=== PATIENT | male | born 2005 | race Two or more races ===

== ENCOUNTER 2024-04-16 16:41 | Emergency (ER) | payer OTHER, SELFPAY ==
[2024-04-16 16:56] VITALS: BP 140/75; PULSE 79; TEMP 37.1; O2SAT 99; BMI 23.0
--- NOTE | 2024-04-16 17:04 | ECG_ITS ---
[facility] Test Date: 2024-04-16 Pat Name: SOLE REES Department: Room: - Gender: Male Clinical Trials Specialist: : 2005 Requested By: AMBER SANTOYO Order Number: [id number] Reading MD: BERT BISWAS Measurements Intervals [place] Rate: 72 P: 65 TX: 140 QRS: 81 QRSD: 96 T: 65 QT: 354 QTc: 378 Interpretive Statements 1100 Sinus rhythm 1102 Sinus arrhythmia 2420 RSR (QR) in lead V1/V2, consistent with right ventricular conduction delay 9130 borderline ECG No previous ECG available for comparison Electronically Signed On 04-17-2024 5:30:11 EDT by BERT BISWAS
[2024-04-16 17:26] LABS: Basophils Absolute Auto 0.1 10^3/uL (0.0-0.1); Basophils Percent Auto 0.9 % (0.2-2.0); Eosinophils Absolute Auto 0.5 10^3/uL (0.0-0.7); Eosinophils Percent Auto 7.8 % (0.9-7.0); Hematocrit 41.1 % (42.0-54.0); Immature Granulocytes Abs Auto 0.01 10^3/uL (0.00-0.03); Immature Granulocytes Pct Auto 0.1 % (0.0-0.5); Lymphocytes Absolute Auto 2.6 10^3/uL (1.2-3.8); Mean Corpuscular HGB Conc 34.1 g/dL (29.9-35.2); Mean Corpuscular Hemoglobin 29.9 pg (25.9-34.0); Mean Corpuscular Volume 87.6 fL (80.0-94.0); Mean Platelet Volume 9.8 fL (9.5-13.5); Monocytes Absolute Auto 0.5 10^3/uL (0.3-0.8); Monocytes Percent Auto 6.5 % (1.7-12.0); Neutrophils Absolute Auto 3.3 10^3/uL (1.4-6.5); Neutrophils Percent Auto 47.7 % (43.0-75.0); Platelet Count 225 10^3/uL (150-450); Red Blood Count 4.69 10^6/uL (4.70-6.10); Red Cell Distribution Width 12.2 % (11.0-15.0); White Blood Count 6.9 10^3/uL (4.0-11.0)
[2024-04-16 17:41] LABS: INR 1.07; Prothrombin Time 11.3 sec (9.0-11.6)
[2024-04-16 17:42] LABS: Alanine Aminotransferase 33 U/L (16-63); Albumin Globulin Ratio 1.5; Albumin Level 4.5 g/dL (3.4-5.0); Alkaline Phosphatase 68 U/L (46-116); Anion Gap 12.6; Aspartate Amino Transferase 22 U/L (15-37); BUN Creatinine Ratio 11.6; Bilirubin Total 0.4 mg/dL (0.2-1.0); Calcium 9.6 mg/dL (8.5-10.1); Carbon Dioxide 31.3 mmol/L (21.0-32.0); Chloride 103 mmol/L (98-107); Estimated GFR (African America >60 (>=60); Estimated GFR (Non-African Ame >60 (>=60); Glucose 89 mg/dL (74-106); Potassium 3.9 mmol/L (3.5-5.1); Sodium 143 mmol/L (136-145); Total Protein 7.5 g/dL (6.4-8.2)
[2024-04-16 17:43] LABS: D Dimer <0.19 mg/L FEU (<=0.59)
--- NOTE | 2024-04-16 17:44 | XR_ITS ---
[place] [address] Patient Name: SOLE REES MRN: [id number] date: 2005 Sex: M Assigned Patient Location: ER Current Patient Location: Accession/Order Number: [id number] Exam Date: 04/16/2024 18:00 Report Date: 04/16/2024 18:58 At the request of: NICKOLAS ALSTON Procedure: XR chest 2V EXAMINATION: XR chest 2V 04/16/2024 3:57 PM PDT, [id number]. HISTORY: Chest pain TECHNIQUE: 2 views of the chest were acquired. COMPARISONS: None. FINDINGS: Lines/tubes/other: None. Heart and mediastinum: Within normal limits. Bones: No acute osseous abnormality. Lungs: Clear. Pleura: No pleural effusion or pneumothorax. Other: No pneumoperitoneum. XR/XR chest 2V IMPRESSION: Normal radiographs of the chest. Electronically authenticated by: NALINI SALDAÑA Date: 04/16/2024 18:58
--- NOTE | 2024-04-16 17:58 | ED_ITS ---
HPI HPI - General Adult General Chief complaint: Chest Pain Stated complaint: CHEST PAIN AND BACK PAIN Time Seen by Provider: 04/16/24 16:48 Source: patient Mode of arrival: walk-in History of Present Illness HPI narrative: Patient is a 19-year-old male who presents to the emergency department For the evaluation of left anterior chest pain radiating into the left scapula that has been present throughout the day today. He denies any mechanism of injury or trauma. Pain does not radiate to the arm. No peripheral paresthesias. He denies any recent fevers, cough or congestion. He states the pain is worse with deep breathing and movement of the chest wall. No medications taken prior to arrival. Related Data Home Medications ?Medication ?Instructions ?Recorded ?Confirmed buspirone 10 mg tablet 10 mg PO DAILY 04/16/24 04/16/24 Previous Rx's ?Medication ?Instructions ?Recorded methylprednisolone 4 mg tablets in See Rx Instructions .Route 04/16/24 a dose pack (Medrol (Shayne)) .COMPLEX #21 ea naproxen sodium 550 mg tablet 550 mg PO BID PRN pain #10 tabs 04/16/24 Allergies Allergy/AdvReac Type Severity Reaction Status Date / Time Latex, Natural Rubber Allergy Mild Rash Verified 04/16/24 16:55 Opioid HPI Opioid Management Most Recent Opioid Data: No Data to Display Review of Systems ROS Constitutional Denies: fever or chills Ears, nose, mouth, and throat Denies: throat pain or nasal congestion Cardiovascular Reports: chest pain Respiratory Denies: shortness of breath or cough Gastrointestinal Denies: nausea or vomiting Musculoskeletal Denies: back pain or neck pain Integumentary/Breast Denies: rash Neurological Denies: headache Hematologic/Lymphatic Denies: easy bruising or easy bleeding Exam Narrative Exam Narrative: Gen.: Awake, alert, in no distress Head: Normocephalic, atraumatic ENT: Moist mucous membranes Respiratory: No respiratory distress, lungs clear bilaterally; No rashes or color change noted to the chest wall or scapula Cardio: Regular rate and rhythm Extremities: Moves extremities equally, no pedal edema Psych: Normal mood and affect Neuro: No focal neuro deficit Skin: Warm, dry, intact Constitutional Vital Signs, click to edit/add: Last Vital Signs Temp 98.7 F 04/16/24 16:56 Pulse 79 04/16/24 16:56 Resp 16 04/16/24 16:56 BP 140/75 04/16/24 16:56 Pulse Ox 99 04/16/24 16:56 O2 Del Method Room Air 04/16/24 16:56 Course Vital Signs Vital signs: Vital Signs Temperature 98.7 F 04/16/24 16:56 Pulse Rate 79 04/16/24 16:56 Respiratory Rate 16 04/16/24 16:56 Blood Pressure 140/75 04/16/24 16:56 Pulse Oximetry 99 04/16/24 16:56 Oxygen Delivery Method Room Air 04/16/24 16:56 Temperature 98.7 F 04/16/24 16:56 Pulse Rate 79 04/16/24 16:56 Respiratory Rate 16 04/16/24 16:56 Blood Pressure 140/75 04/16/24 16:56 Pulse Oximetry 99 04/16/24 16:56 Oxygen Delivery Method Room Air 04/16/24 16:56 Medical Decision Making MDM Narrative Medical decision making narrative: The majority of the patient's workup was obtained while he was waiting for a room. He had an EKG in triage which was unremarkable. Lab draw shows normal D- dimer and troponin and chest x-ray is clear. Patient treated with Toradol and Robaxin in the ER for chest wall pain. Started on a Medrol Dosepak and NSAID for home. Follow-up with PCP. Vital signs are stable in the ER. Return to the ER if symptoms change or worsen. Patient reevaluated by attending physician prior to discharge. Medical Records Medical records reviewed: Yes I reviewed the patient's medical records Lab Data Lab results reviewed: Yes I reviewed the patient's lab results Labs: Lab Results 04/16/24 Range/Units 17:18 WBC 6.9 (4.0-11.0) 10^3/uL RBC 4.69 L (4.70-6.10) 10^6/uL Hgb 14.0 (14.0-18.0) g/dL Hct 41.1 L (42.0-54.0) % MCV 87.6 (80.0-94.0) fL MCH 29.9 (25.9-34.0) pg MCHC 34.1 (29.9-35.2) g/dL RDW 12.2 (11.0-15.0) % Plt Count 225 (150-450) 10^3/uL MPV 9.8 (9.5-13.5) fL Neut % (Auto) 47.7 (43.0-75.0) % Lymph % (Auto) 37.0 (20.5-60.0) % [place] % (Auto) 6.5 (1.7-12.0) % Eos % (Auto) 7.8 H (0.9-7.0) % Baso % (Auto) 0.9 (0.2-2.0) % Neut # (Auto) 3.3 (1.4-6.5) 10^3/uL Lymph # (Auto) 2.6 (1.2-3.8) 10^3/uL [place] # (Auto) 0.5 (0.3-0.8) 10^3/uL Eos # (Auto) 0.5 (0.0-0.7) 10^3/uL Baso # (Auto) 0.1 (0.0-0.1) 10^3/uL Abs Immat Gran (auto) 0.01 (0.00-0.03) 10^3/uL Imm/Tot Granulo (auto) 0.1 (0.0-0.5) % PT 11.3 (9.0-11.6) sec INR 1.07 D-Dimer <0.19 (<=0.59) mg/L FEU Sodium 143 (136-145) mmol/L Potassium 3.9 (3.5-5.1) mmol/L Chloride 103 (98-107) mmol/L Carbon Dioxide 31.3 (21.0-32.0) mmol/L Anion Gap 12.6 BUN 11.0 (7.0-18.0) mg/dL Creatinine 0.95 (0.70-1.30) mg/dL Est GFR ( Amer) >60 (>=60) Est GFR (Non-Af Amer) >60 (>=60) BUN/Creatinine Ratio 11.6 Glucose 89 (74-106) mg/dL Calcium 9.6 (8.5-10.1) mg/dL Total Bilirubin 0.4 (0.2-1.0) mg/dL AST 22 (15-37) U/L ALT 33 (16-63) U/L Alkaline Phosphatase 68 (46-116) U/L Troponin I High Sens 4.0 (4.0-76.1) pg/mL Total Protein 7.5 (6.4-8.2) g/dL Albumin 4.5 (3.4-5.0) g/dL Globulin 3.0 g/dL Albumin/Globulin Ratio 1.5 Lipase 25.0 (16.0-77.0) U/L Imaging Data Chest x-ray: Attestation: I have reviewed the pertinent imaging results. ECG Data Attestation: I personally reviewed and interpreted this ECG as follows: (Normal sinus rhythm at a rate of 72, sinus arrhythmia noted with no acute ST elevation or ectopy. EKG reviewed by attending physician) Discharge Plan Discharge Stand Alone Forms: Portal Instructions Chief Complaint: Chest Pain Clinical Impression: Chest pain Patient Disposition: Home, Self-Care Time of Disposition Decision: 18:02 Condition: Good Prescriptions / Home Meds: New methylprednisolone [Medrol (Shayne)] 4 mg tablets,dose pack See Rx Instructions .ROUTE .COMPLEX Qty: 21 0RF Rx Instructions: Taper as directed naproxen sodium 550 mg tablet 550 mg PO BID PRN (Reason: pain) Qty: 10 0RF No Action buspirone 10 mg tablet 10 mg PO DAILY Print Language: Divehi Instructions: Noncardiac Chest Pain (ED) Referrals: AMBER SANTOYO [Primary Care Provider] - 1 week
[2024-04-16] MEDS: KETOROLAC TROMETHAMINE 10 MG TABLET PO (18:21)
[2024-04-16] MEDS: METHOCARBAMOL 500 MG TABLET 750 MG PO (18:21)
== END 2024-04-16 18:27 | disposition home or self-care (01) ==
PROVIDERS: Physician Assistant; Emergency Provider Emergency Medicine; PCP Family Medicine
DX: R07.9 Chest pain, unspecified (principal); Z79.899 Other long term (current) drug therapy
CPT/HCPCS: 36415; 71046; 80053; 83690; 84484; 85025; 85378; 85610; 93005; 99285